=== PATIENT | female | born 2000 | race Hispanic/Latino ===

== ENCOUNTER 2022-01-04 14:24 | Inpatient (IN) | payer OTHER ==
[2022-01-04] MEDS ORDERED: Ondansetron PF 4 MG/2 ML Vial IVP PRN ×2 (15:22→21:56)
[2022-01-04] MEDS ORDERED: Ibuprofen 800 MG TAB PO PRN (15:22)
[2022-01-04] MEDS ORDERED: Methylergonovine 0.2 MG/ML VIAL IM PRN (15:22)
[2022-01-04] MEDS ORDERED: Acetaminophen 500 MG TAB PO PRN (15:22)
[2022-01-04] MEDS ORDERED: Misoprostol 200 MCG TAB PR PRN (15:22)
[2022-01-04] MEDS ORDERED: Docusate 100 MG CAP PO PRN (15:22)
[2022-01-04] MEDS ORDERED: Butorphanol Tartrate 1 MG/ML VIAL SLOW IVP PRN (15:22)
[2022-01-04] MEDS ORDERED: Carboprost 250 MCG/ML AMP IM PRN (15:22)
[2022-01-04] MEDS ORDERED: Promethazine HCl 25 MG/ML VIAL IM PRN ×2 (15:22→21:56)
[2022-01-04] MEDS ORDERED: hydrALAZINE 20 MG/ML VIAL SLOW IVP PRN (15:22)
[2022-01-04] MEDS ORDERED: Lidocaine 1% (PF) 30 ML VIAL SC PRN (15:22)
[2022-01-04] MEDS ORDERED: NS w/ Oxytocin 30 units 500 ML IV SCH (15:30)
[2022-01-04] MEDS ORDERED: Penicillin G Potassium 5 MILL.UNITS in Sodium Chloride 0.9% 100 ML IVPB SCH (15:30)
[2022-01-04 16:31] LABS: Hemoglobin 11.8 g/dL (12.0-15.5); Mean Corpuscular HGB CONC 33.6 g/dL (32.0-36.0); Mean Corpuscular Volume 83.4 fl (81.6-98.3); Mean Platelet Volume 10.9 fl (7.4-10.4); Platelet Count 293 10x3/uL (150-450); RBC Distribution Width 14.6 % (11.5-14.5); Red Blood Cell (RBC) Count 4.21 10x6/uL (3.90-5.03); White Blood Cell (WBC) Count 10.9 10x3/uL (3.5-10.5)
[2022-01-04] MEDS: Lactated Ringer's 1,000 ML IV SCH (17:06)
[2022-01-04 17:19] LABS: Hep B Surf Ag Non-Reactive S/CO (NonReactive); Syphilis Antibody Nonreactive (Nonreactive); Syphilis Antibody Index 0.04 S/CO (<1.00 Non-Reactive)
[2022-01-04 17:20] LABS: HBSAg Index 0.14 S/CO (0-0.99)
[2022-01-04 17:27] VITALS: BMI 33.9
[2022-01-04 18:59] LABS: SARS-CoV-2 NAA Rapid Test Not Detected (NotDetected)
[2022-01-04] MEDS ORDERED: Fentanyl 2 mcg/Bup 0.1% Cadd 100 ML ONE (21:02)
[2022-01-04] MEDS ORDERED: ePHEDrine Sulfate 50 MG/10 ML VIAL SLOW IVP PRN (21:56)
[2022-01-04] MEDS ORDERED: Lactated Ringer's 500 ML IV PRN (21:56)
[2022-01-04] MEDS ORDERED: Naloxone HCl 0.4 mg/ml Vial IVP PRN ×2 (21:56)
[2022-01-04] MEDS ORDERED: Moisturizing Cream (Eucerin) 113 GM JAR TOP PRN (21:56)
[2022-01-04] MEDS ORDERED: Acetaminophen 325 MG TAB PO PRN (21:56)
[2022-01-04] MEDS ORDERED: diphenhydrAMINE 50 MG/ML VIAL IVP PRN (21:56)
[2022-01-04] MEDS ORDERED: Communication Order-Pharmacy FS SCH (22:00)
[2022-01-04] MEDS ORDERED: Fentanyl 2 mcg/Bupivacaine 0.1% Cassette 100 ML EPIDURAL SCH (22:00)
[2022-01-04] MEDS: Penicillin G 2.5 MILL.units 2.5 MILL.UNITS in Premix Bag 1 BAG IVPB SCH (22:23)
[2022-01-04] MEDS: Misoprostol 100 MCG TAB PO SCH (22:23)
[2022-01-05] MEDS: Penicillin G 2.5 MILL.units 2.5 MILL.UNITS in Premix Bag 1 BAG IVPB SCH ×3 (02:20→10:12)
[2022-01-05 03:43] LABS: Creatinine, Urine 219.5 mg/dL (47-110)
[2022-01-05] MEDS ORDERED: NS w/ Oxytocin 30 units 500 ML IV SCH (04:00)
[2022-01-05 06:22] LABS: ALT (SGPT) 8 U/L (8-55); AST (SGOT) 15 U/L (5-34); Albumin 2.4 g/dL (3.5-5.0); Alkaline Phosphatase 168 U/L (40-100); Anion Gap 16 mmol/L (10-20); BUN (Urea Nitrogen) 9 mg/dL (7.0-18.7); Bilirubin, Total 0.4 mg/dL (0.2-1.2); Calc. Creatinine Clearance 171 mL/min (70-130); Calcium 8.5 mg/dL (7.8-10.44); Carbon Dioxide 19 mmol/L (22-29); Chloride 107 mmol/L (98-107); Glucose 62 mg/dL (70-105); Potassium 3.9 mmol/L (3.5-5.1); Protein, Total 5.4 g/dL (6.0-8.3); Sodium 138 mmol/L (136-145)
[2022-01-05] MEDS ORDERED: Furosemide 20 MG/2 ML VIAL SLOW IVP SCH (08:15)
[2022-01-05] MEDS ORDERED: Sodium Chloride 0.9% 1,000 ML IV SCH (08:30)
[2022-01-05] MEDS ORDERED: Fentanyl 100 MCG/2 ML VIAL ONE ×2 (09:02→12:51)
[2022-01-05 09:58] LABS: #Basophils 0.1 10x3/uL (0.0-0.2); #Monocytes 1.3 10x3/uL (0.0-1.1); #Neutrophils 12.5 10x3/uL (1.5-8.4); %Basophils 0.3 % (0.0-2.0); %Eosinophils 0.1 % (0.0-6.0); %Lymphocytes 16.3 % (18.0-47.0); %Monocytes 7.9 % (0.0-10.0); %Neutrophils 74.8 % (40.0-75.0); Hemoglobin 12.2 g/dL (12.0-15.5); Mean Corpuscular HGB CONC 32.9 g/dL (32.0-36.0); Mean Corpuscular Hemoglobin 27.8 pg (27.0-33.0); Mean Corpuscular Volume 84.5 fl (81.6-98.3); Mean Platelet Volume 10.5 fl (7.4-10.4); Platelet Count 308 10x3/uL (150-450); RBC Distribution Width 14.8 % (11.5-14.5); Red Blood Cell (RBC) Count 4.39 10x6/uL (3.90-5.03); White Blood Cell (WBC) Count 16.7 10x3/uL (3.5-10.5)
[2022-01-05 10:23] LABS: ALT (SGPT) 9 U/L (8-55); AST (SGOT) 17 U/L (5-34); Albumin 2.4 g/dL (3.5-5.0); Alkaline Phosphatase 167 U/L (40-100); Anion Gap 15 mmol/L (10-20); BUN (Urea Nitrogen) 9 mg/dL (7.0-18.7); Bilirubin, Total 0.4 mg/dL (0.2-1.2); Calc. Creatinine Clearance 159 mL/min (70-130); Calcium 8.8 mg/dL (7.8-10.44); Carbon Dioxide 20 mmol/L (22-29); Chloride 105 mmol/L (98-107); Globulin 3.3 g/dL (2.4-3.5); Glucose 65 mg/dL (70-105); Potassium 3.7 mmol/L (3.5-5.1); Protein, Total 5.7 g/dL (6.0-8.3); Sodium 136 mmol/L (136-145)
[2022-01-05] MEDS ORDERED: Fentanyl 2 mcg/Bup 0.1% Cadd 100 ML ONE (12:50)
[2022-01-05] MEDS ORDERED: Acetaminophen 500 MG TAB PO SCH (14:00)
[2022-01-05] MEDS ORDERED: Carboprost 250 MCG/ML AMP ONE (14:01)
[2022-01-05] MEDS ORDERED: Misoprostol 200 MCG TAB ONE (14:02)
[2022-01-05] MEDS ORDERED: NS w/ Oxytocin 30 units 500 ML ONE (14:02)
[2022-01-05] MEDS ORDERED: Tranexamic Acid 1,000 MG/10 ML VIAL ONE (14:02)
[2022-01-05] MEDS ORDERED: Gentamicin Sulfate 380 MG in Sodium Chloride 0.9% 100 ML IVPB SCH (14:15)
[2022-01-05] MEDS ORDERED: Magnesium Sulfate 20 gm/500 ml 20 GM/500 ML BAG ONE (14:57)
[2022-01-05] MEDS ORDERED: Calcium Gluc 4.6 MEQ/10 ML (100 MG/ML) SLOW IVP PRN (14:59)
[2022-01-05] MEDS ORDERED: Magnesium Sulfate 20 gm/500 ml 20 GM/500 ML BAG IVPB SCH (15:00)
[2022-01-05] MEDS ORDERED: Magnesium Sulfate 20 GM/WATER 500 ML BAG IVPB SCH (15:00)
[2022-01-05 16:46] LABS: RapidComm Collect By NURSE
[2022-01-05 16:48] LABS: RapidComm Collect By NURSE; pH (Cord, venous) 7.314 (7.250-7.350)
[2022-01-05] MEDS ORDERED: AMPicillin 2 GM in Dextrose 5% in Water 100 ML IVPB SCH (18:00)
[2022-01-05] MEDS ORDERED: hydrALAZINE 20 MG/ML VIAL SLOW IVP PRN (18:41)
[2022-01-05] MEDS ORDERED: HYDROcodone/Acetaminophen 5/325 mg Tablet PO PRN ×2 (18:41)
[2022-01-05] MEDS ORDERED: Ondansetron PF 4 MG/2 ML Vial IVP PRN (18:41)
[2022-01-05] MEDS ORDERED: Milk Of Magnesia 30 ML UDCUP PO PRN (18:41)
[2022-01-05] MEDS ORDERED: Boostrix 0.5 ML (Tdap) VIAL IM ONE (18:41)
[2022-01-05] MEDS ORDERED: Bisacodyl 10 MG SUPP PR PRN (18:41)
[2022-01-05] MEDS ORDERED: Calcium Gluconate 4.6 MEQ in Sodium Chloride 0.9% 100 ML IVPB PRN (18:41)
[2022-01-05 19:29] LABS: Magnesium 4.8 mg/dL (1.7-2.2)
[2022-01-05] MEDS: Ibuprofen 800 MG TAB PO SCH (20:09)
[2022-01-05] MEDS: Docusate 100 MG CAP PO SCH (21:23)
[2022-01-06] MEDS: Magnesium Sulfate 20 gm/500 ml 20 GM/500 ML BAG IVPB SCH ×2 (00:08→11:13)
[2022-01-06] MEDS: Lactated Ringer's 1,000 ML IV SCH ×3 (00:53→15:21)
[2022-01-06] MEDS: Ibuprofen 800 MG TAB PO SCH ×3 (04:07→22:20)
[2022-01-06] MEDS: Ferrous Sulfate 325 MG TAB PO SCH (07:53)
[2022-01-06] MEDS: Misoprostol 100 MCG TAB PO SCH (07:56)
[2022-01-06] MEDS: Penicillin G 2.5 MILL.units 2.5 MILL.UNITS in Premix Bag 1 BAG IVPB SCH (07:57)
[2022-01-06] MEDS: Docusate 100 MG CAP PO SCH ×2 (09:06→22:19)
[2022-01-06] MEDS: Prenatal Vitamin 1 TAB PO SCH (09:06)
[2022-01-06] MEDS ORDERED: Labetalol HCl 100 MG TAB PO SCH (14:45)
[2022-01-06] MEDS ORDERED: hydrALAZINE 20 MG/ML VIAL ONE (14:47)
[2022-01-06] MEDS ORDERED: Calcium Gluc 4.6 MEQ/10 ML (100 MG/ML) SLOW IVP PRN (14:56)
[2022-01-06] MEDS ORDERED: hydrALAZINE 20 MG/ML VIAL SLOW IVP PRN ×2 (14:56)
[2022-01-06] MEDS ORDERED: Lorazepam 2 MG/ML VIAL SLOW IVP PRN (14:56)
[2022-01-06] MEDS: Labetalol HCl 100 MG TAB PO SCH (22:20)
[2022-01-07] MEDS: Ibuprofen 800 MG TAB PO SCH ×3 (06:24→20:44)
[2022-01-07] MEDS: Ferrous Sulfate 325 MG TAB PO SCH ×2 (08:15→15:23)
[2022-01-07] MEDS: Labetalol HCl 100 MG TAB PO SCH ×2 (09:13→20:44)
[2022-01-07] MEDS: Docusate 100 MG CAP PO SCH ×2 (09:13→20:43)
[2022-01-07] MEDS: Prenatal Vitamin 1 TAB PO SCH (09:13)
[2022-01-07] MEDS ORDERED: Benzocaine-Menthol 82.5 ML CAN TOP PRN (21:53)
[2022-01-08] MEDS: Ibuprofen 800 MG TAB PO SCH (04:52)
[2022-01-08] MEDS: Docusate 100 MG CAP PO SCH (09:12)
[2022-01-08] MEDS: Prenatal Vitamin 1 TAB PO SCH (09:12)
[2022-01-08] MEDS: Labetalol HCl 100 MG TAB PO SCH (09:14)
[2022-01-08 09:18] VITALS: BP 134/71
[2022-01-08 09:59] VITALS: TEMP 98.3
== END 2022-01-08 17:36 | disposition home or self-care (01) | DRG 805 ==
LOC: CSHLD/OP 14:24 → CSHLD 15:21 → CSHPP 01-06 17:30
PROVIDERS: ADMIT Obstetrics & Gynecology; ATTEND Obstetrics & Gynecology
PROC: 3E0P7VZ Introduction of Hormone into Female Reproductive, Via Natural or Artificial Opening (ICD-10-PCS; 2022-01-04)
PROC: 10E0XZZ Delivery of Products of Conception, External Approach (ICD-10-PCS; principal; 2022-01-05)
PROC: 0KQM0ZZ Repair Perineum Muscle, Open Approach (ICD-10-PCS; 2022-01-05)
PROC: 0W8NXZZ Division of Female Perineum, External Approach (ICD-10-PCS; 2022-01-05)
PROC: 10H07YZ Insertion of Other Device into Products of Conception, Via Natural or Artificial Opening (ICD-10-PCS; 2022-01-05)
PROC: 3E033VJ Introduction of Other Hormone into Peripheral Vein, Percutaneous Approach (ICD-10-PCS; 2022-01-05)
DX: O42.013 Preterm premature rupture of membranes, onset of labor within 24 hours of rupture, third trimester (principal); O41.1230 Chorioamnionitis, third trimester, not applicable or unspecified; Z37.0 Single live birth; O60.14X0 Preterm labor third trimester with preterm delivery third trimester, not applicable or unspecified; Z20.822 Contact with and (suspected) exposure to COVID-19; O14.14 Severe pre-eclampsia complicating childbirth; Z3A.36 36 weeks gestation of pregnancy; O66.0 Obstructed labor due to shoulder dystocia; O70.1 Second degree perineal laceration during delivery; E66.9 Obesity, unspecified; O99.214 Obesity complicating childbirth; O99.344 Other mental disorders complicating childbirth; F41.1 Generalized anxiety disorder; F32.9 Major depressive disorder, single episode, unspecified; J45.909 Unspecified asthma, uncomplicated; O99.52 Diseases of the respiratory system complicating childbirth; O36.63X0 Maternal care for excessive fetal growth, third trimester, not applicable or unspecified
CPT/HCPCS: 36415; 51702; 51703; 80053; 82570; 82805; 83735; 84156; 85025; 85027; 86780; 86850; 86900; 86901; 87340; 93306; 99285; J0360; J1580; J1940; J2540; J2590; J3475; J3490; J7120; U0002

== ENCOUNTER 2022-01-25 22:05 | Emergency (ER) | payer OTHER ==
[2022-01-25 22:45] LABS: #Basophils 0.1 10x3/uL (0.0-0.2); #Eosinphils 0.1 10x3/uL (0.0-0.5); #Monocytes 0.5 10x3/uL (0.0-1.1); #Neutrophils 4.3 10x3/uL (1.5-8.4); %Basophils 0.8 % (0.0-2.0); %Eosinophils 1.3 % (0.0-6.0); %Lymphocytes 43.8 % (18.0-47.0); %Neutrophils 47.8 % (40.0-75.0); Hemoglobin 12.4 g/dL (12.0-15.5); Mean Corpuscular HGB CONC 32.3 g/dL (32.0-36.0); Mean Corpuscular Hemoglobin 27.4 pg (27.0-33.0); Platelet Count 454 10x3/uL (150-450); Red Blood Cell (RBC) Count 4.52 10x6/uL (3.90-5.03)
[2022-01-25 23:02] LABS: ALT (SGPT) 31 U/L (8-55); AST (SGOT) 20 U/L (5-34); Albumin 3.9 g/dL (3.5-5.0); Alkaline Phosphatase 114 U/L (40-100); Anion Gap 15 mmol/L (10-20); BUN (Urea Nitrogen) 12 mg/dL (7.0-18.7); Bilirubin, Total 0.2 mg/dL (0.2-1.2); Calc. Creatinine Clearance 0 mL/min (70-130); Calcium 9.5 mg/dL (7.8-10.44); Carbon Dioxide 23 mmol/L (22-29); Chloride 104 mmol/L (98-107); Globulin 3.5 g/dL (2.4-3.5); Glucose 95 mg/dL (70-105); Potassium 3.4 mmol/L (3.5-5.1); Protein, Total 7.4 g/dL (6.0-8.3); Sodium 139 mmol/L (136-145)
[2022-01-25 23:27] LABS: Bilirubin Neg (Negative); Blood, Urine 250 (Negative); Clarity Clear (Clear); Glucose, Urine (Dipstick) Normal (Negative); Ketone, Urine Negative (Negative); Leukocyte 100 (Negative); Nitrite Negative (Negative); Protein, Urine (Dipstick) 30 mg/dl (Neg-Trace); Urobilinogen Normal mg/dL (Less than 2)
[2022-01-25 23:35] LABS: Bacteria/HPF 2+ HPF (None Seen); Mucous/LPF 1+ LPF (<2+)
== END 2022-01-26 00:36 | disposition home or self-care (01) ==
LOC: CSHERS 22:05
DX: I10 Essential (primary) hypertension (principal)
CPT/HCPCS: 80053; 81003; 81015; 85025; 87086; 93005

== ENCOUNTER 2023-02-02 18:55 | Emergency (ER) | payer OTHER ==
[2023-02-02] MEDS ORDERED: Ketorolac Tromethamine 30 MG/ML VIAL ONE (21:07)
[2023-02-02] MEDS ORDERED: Dexamethasone 10 MG/ML VIAL ONE (21:07)
== END 2023-02-02 21:26 | disposition home or self-care (01) ==
LOC: CSHERS 18:55
DX: B34.9 Viral infection, unspecified (principal)
CPT/HCPCS: 96372; 99283; J1100; J1885

== ENCOUNTER 2023-12-06 06:32 | Day surgery (SDC) | payer OTHER ==
[2023-12-06 07:08] VITALS: BMI 36.1
[2023-12-06] MEDS ORDERED: hydrALAZINE 20 MG/ML VIAL SLOW IVP PRN (07:43)
[2023-12-06] MEDS: Acetaminophen 500 MG TAB PO SCH (08:03)
[2023-12-06] MEDS: Cyclobenzaprine 10 MG TAB PO SCH (09:39)
== END 2023-12-06 11:50 | disposition home or self-care (01) ==
LOC: CSHLD/OP 06:32
PROVIDERS: ATTEND Student in an Organized Health Care Education/Training Program
DX: O99.891 Other specified diseases and conditions complicating pregnancy (principal); M54.50 Low back pain, unspecified; R10.2 Pelvic and perineal pain; Z3A.25 25 weeks gestation of pregnancy; Z79.899 Other long term (current) drug therapy
CPT/HCPCS: 99283

== ENCOUNTER 2023-12-10 00:47 | Emergency (ER) | payer OTHER ==
[2023-12-10 01:12] LABS: Bilirubin Neg (Negative); Blood, Urine 10 (Negative); Clarity Cloudy (Clear); Glucose, Urine (Dipstick) Normal (Negative); Ketone, Urine 5 mg/dL (Negative); Leukocyte 100 (Negative); Nitrite Negative (Negative); Protein, Urine (Dipstick) 30 mg/dl (Neg-Trace)
[2023-12-10] MEDS ORDERED: Acetaminophen 500 MG TAB ONE (01:14)
[2023-12-10] MEDS ORDERED: Ondansetron PF 4 MG/2 ML Vial ONE (01:14)
[2023-12-10 01:20] LABS: Bacteria/HPF 4+ HPF (None Seen); CAUTI Indications for Culture Pregnancy; RBC/HPF 0-3 HPF (0-3)
[2023-12-10 01:21] LABS: #Monocytes 0.7 10x3/uL (0.0-1.1); #Neutrophils 6.5 10x3/uL (1.5-8.4); %Basophils 0.3 % (0.0-2.0); %Eosinophils 0.4 % (0.0-6.0); %Monocytes 7.7 % (0.0-10.0); %Neutrophils 68.8 % (40.0-75.0); Hematocrit 32.2 % (34.9-44.5); Hemoglobin 10.7 g/dL (12.0-15.5); Mean Corpuscular HGB CONC 33.2 g/dL (32.0-36.0); Mean Corpuscular Hemoglobin 28.9 pg (27.0-33.0); Mean Platelet Volume 8.8 fl (7.4-10.4); Platelet Count 348 10x3/uL (150-450); RBC Distribution Width 14.2 % (11.5-14.5); White Blood Cell (WBC) Count 9.5 10x3/uL (3.5-10.5)
[2023-12-10 01:24] LABS: Urine Culture Reflex Yes Yes
[2023-12-10 01:35] LABS: ALT (SGPT) 46 U/L (8-55); AST (SGOT) 54 U/L (5-34); Albumin 3.6 g/dL (3.5-5.0); Alkaline Phosphatase 68 U/L (40-110); Anion Gap 15 mmol/L (10-20); BUN (Urea Nitrogen) 7 mg/dL (7.0-18.7); Bilirubin, Total 0.3 mg/dL (0.2-1.2); Calc. Creatinine Clearance 0 mL/min (70-130); Calcium 8.3 mg/dL (7.8-10.44); Carbon Dioxide 18 mmol/L (22-29); Chloride 106 mmol/L (98-107); Estimated GFR 133; Globulin 3.2 g/dL (2.4-3.5); Glucose 122 mg/dL (70-105); Potassium 3.8 mmol/L (3.5-5.1); Protein, Total 6.8 g/dL (6.0-8.3); Sodium 135 mmol/L (136-145)
[2023-12-10 01:42] LABS: Troponin I Less than 0.010 ng/mL (< 0.028)
[2023-12-10] MEDS ORDERED: Iopamidol 370 76% 100 ML VIAL ONE (08:46)
== END 2023-12-10 04:07 | disposition home or self-care (01) ==
LOC: CSHERS 00:47
DX: R07.89 Other chest pain (principal); R82.71 Bacteriuria
CPT/HCPCS: 71275; 80053; 81001; 84484; 85025; 85379; 87077; 87086; 87186; 93005; 96374; J2405; Q9967

== ENCOUNTER 2023-12-30 05:04 | Day surgery (SDC) | payer OTHER ==
[2023-12-30 05:34] VITALS: BMI 36.9
[2023-12-30] MEDS ORDERED: hydrALAZINE 20 MG/ML VIAL SLOW IVP PRN (06:03)
[2023-12-30 06:14] LABS: Bilirubin Neg (Negative); Blood, Urine Negative (Negative); Clarity Clear (Clear); Glucose, Urine (Dipstick) Normal (Negative); Ketone, Urine Negative (Negative); Leukocyte 25 (Negative); Nitrite Negative (Negative); Protein, Urine (Dipstick) 15 mg/dl (Neg-Trace)
[2023-12-30 06:20] LABS: Bacteria/HPF None Seen HPF (None Seen); CAUTI Indications for Culture Pregnancy; RBC/HPF None Seen HPF (0-3); Squamous Epithelial 0-3 HPF (0-3); WBC/HPF 0-3 HPF (0-3)
[2023-12-30 06:21] LABS: Urine Culture Reflex Yes Yes
[2023-12-30] MEDS: Ondansetron ODT 4 MG TAB PO PRN (07:21)
[2023-12-30] MEDS ORDERED: Iopamidol 15 ML ONE (07:21)
[2023-12-30] MEDS ORDERED: Indomethacin 50 MG SUPP ONE (07:22)
[2023-12-30 07:45] LABS: #Basophils 0.03 10x3/uL (0.0-0.2); #Monocytes 0.91 10x3/uL (0.0-1.1); #Neutrophils 6.87 10x3/uL (1.5-8.4); %Basophils 0.3 % (0.0-2.0); %Eosinophils 0.9 % (0.0-6.0); %Lymphocytes 26.8 % (18.0-47.0); %Monocytes 8.3 % (0.0-10.0); %Neutrophils 62.7 % (40.0-75.0); Hematocrit 31.7 % (34.9-44.5); Hemoglobin 10.8 g/dL (12.0-15.5); Mean Corpuscular HGB CONC 34.1 g/dL (32.0-36.0); Mean Corpuscular Hemoglobin 28.5 pg (27.0-33.0); Mean Corpuscular Volume 83.6 fl (81.6-98.3); Mean Platelet Volume 8.8 fl (7.4-10.4); Platelet Count 334 10x3/uL (150-450); RBC Distribution Width 13.8 % (11.5-14.5); Red Blood Cell (RBC) Count 3.79 10x6/uL (3.90-5.03)
[2023-12-30 08:10] LABS: ALT (SGPT) 25 U/L (8-55); AST (SGOT) 17 U/L (5-34); Albumin 2.6 g/dL (3.5-5.0); Alkaline Phosphatase 91 U/L (40-110); Anion Gap 14 mmol/L (10-20); BUN (Urea Nitrogen) 8 mg/dL (7.0-18.7); Bilirubin, Total 0.3 mg/dL (0.2-1.2); Calc. Creatinine Clearance 203 mL/min (70-130); Calcium 8.9 mg/dL (7.8-10.44); Carbon Dioxide 19 mmol/L (22-29); Chloride 104 mmol/L (98-107); Estimated GFR 132; Globulin 4.3 g/dL (2.4-3.5); Glucose 125 mg/dL (70-105); Potassium 3.4 mmol/L (3.5-5.1); Protein, Total 6.9 g/dL (6.0-8.3); Sodium 134 mmol/L (136-145)
== END 2023-12-30 08:50 | disposition home or self-care (01) ==
LOC: CSHLD/OP 05:04
PROVIDERS: ATTEND Obstetrics & Gynecology
DX: O36.8130 Decreased fetal movements, third trimester, not applicable or unspecified (principal); O24.419 Gestational diabetes mellitus in pregnancy, unspecified control; Z79.84 Long term (current) use of oral hypoglycemic drugs; Z79.899 Other long term (current) drug therapy; Z3A.29 29 weeks gestation of pregnancy
CPT/HCPCS: 36415; 36416; 76819; 80053; 81001; 85025; 87086; Q0162; Q9967

== ENCOUNTER 2024-03-04 14:52 | Inpatient (IN) | payer OTHER ==
[2024-03-04] MEDS ORDERED: Famotidine/PF 20 mg/2ml Vial SLOW IVP PRN (15:22)
[2024-03-04] MEDS ORDERED: Bicitra 30 ML UDCUP PO PRN (15:22)
[2024-03-04] MEDS ORDERED: Diphenoxylate HCl/Atropine Tablet PO PRN (15:23)
[2024-03-04] MEDS ORDERED: Carboprost 250 MCG/ML AMP IM PRN (15:23)
[2024-03-04] MEDS ORDERED: Promethazine HCl 25 MG/ML VIAL IM PRN (15:23)
[2024-03-04] MEDS ORDERED: Tranexamic Acid 1,000 MG/10 ML VIAL IVP PRN (15:23)
[2024-03-04] MEDS ORDERED: hydrALAZINE 20 MG/ML VIAL SLOW IVP PRN (15:23)
[2024-03-04] MEDS ORDERED: Methylergonovine 0.2 MG/ML VIAL IM PRN (15:23)
[2024-03-04] MEDS ORDERED: Ondansetron PF 4 MG/2 ML Vial IVP PRN ×3 (15:23→16:20)
[2024-03-04] MEDS ORDERED: Misoprostol 200 MCG TAB PR PRN (15:23)
[2024-03-04] MEDS ORDERED: Oxytocin 30 units/NS 500 ML 500 ML IV SCH (15:30)
[2024-03-04] MEDS ORDERED: Azithromycin 500 MG in Sodium Chloride 0.9% 250 ML 250 ML IVPB SCH (15:45)
[2024-03-04] MEDS ORDERED: CEFAZOLIN 2 GM in Sodium Chloride 0.9% 100 ML IVPB SCH (15:45)
[2024-03-04] MEDS ORDERED: Moisturizing Cream (Eucerin) 113 GM JAR TOP PRN (16:20)
[2024-03-04] MEDS ORDERED: Meperidine HCl/PF 25 MG (1 mL) VIAL SLOW IVP PRN (16:20)
[2024-03-04] MEDS ORDERED: Naloxone HCl 0.4 mg/ml Vial IV PRN (16:20)
[2024-03-04] MEDS ORDERED: Naloxone HCl 0.4 mg/ml Vial IVP PRN ×2 (16:20)
[2024-03-04] MEDS ORDERED: fentaNYL 50 mcg/mL 1 mL Vial SLOW IVP PRN (16:20)
[2024-03-04] MEDS ORDERED: diphenhydrAMINE 50 MG/ML VIAL IVP PRN (16:20)
[2024-03-04] MEDS ORDERED: Communication Order-Pharmacy FS SCH (16:30)
[2024-03-04 16:31] LABS: Hematocrit 35.7 % (34.9-44.5); Mean Corpuscular HGB CONC 33.6 g/dL (32.0-36.0); Mean Corpuscular Hemoglobin 28.2 pg (27.0-33.0); Mean Platelet Volume 10.1 fL (7.4-10.4); Platelet Count 322 10x3/uL (150-450); RBC Distribution Width 18.1 % (11.5-14.5); Red Blood Cell (RBC) Count 4.25 10x6/uL (3.90-5.03)
[2024-03-04] MEDS ORDERED: Bisacodyl 10 MG SUPP PR PRN (16:49)
[2024-03-04 16:57] LABS: HBsAg Index 0.17 S/CO (0-0.99); Hep B Surf Ag - L&D Non-Reactive S/CO (NonReactive)
[2024-03-04 16:58] LABS: Syphilis Antibody Nonreactive (Nonreactive); Syphilis Antibody Index 0.06 S/CO (<1.00 Non-Reactive)
[2024-03-04] MEDS: Phenylephrine 40 MG/NS 250 ML 250 ML ONE (21:10)
[2024-03-04] MEDS: Sodium Bicarbonate 2.5 MEQ/5 ML SDV ONE (21:10)
[2024-03-04] MEDS: Ferrous Sulfate 325 MG TAB PO SCH (21:10)
[2024-03-04] MEDS: Sodium Chloride 0.9% 10 ML ONE (21:10)
[2024-03-04] MEDS: Ondansetron PF 4 MG/2 ML Vial ONE (21:10)
[2024-03-04] MEDS: Oxytocin 10 UNITS/ML VIAL ONE (21:10)
[2024-03-04] MEDS: Docusate 100 MG CAP PO SCH (21:10)
[2024-03-04] MEDS: Dexamethasone 4 mg/ml Vial ONE (21:10)
[2024-03-04] MEDS: Ketorolac Tromethamine 30 MG (1 mL) VIAL ONE (21:10)
[2024-03-04] MEDS: Morphine PF 10 MG/10 ML VIAL ONE (21:10)
[2024-03-04] MEDS: Dexmedetomidine 200 MCG/2 ML VIAL ONE (21:10)
[2024-03-04] MEDS: Promethazine HCl 25 MG/ML VIAL IM PRN (23:04)
[2024-03-04] MEDS: Ketorolac Tromethamine 30 MG (1 mL) VIAL IVP SCH (23:45)
[2024-03-05] MEDS ORDERED: HumaLOG 300 UNITS/3 ML VIAL SC PRN (00:13)
[2024-03-05] MEDS ORDERED: Dextrose 5% in Water 1,000 ML IV PRN (00:13)
[2024-03-05] MEDS ORDERED: Dextrose 50% Abboject 50 ML SYRINGE SLOW IVP PRN (00:13)
[2024-03-05] MEDS ORDERED: Glucagon 1 MG/ML KIT IM PRN (00:13)
[2024-03-05 03:52] VITALS: BMI 39.4
[2024-03-05 04:24] LABS: Hematocrit 32.2 % (34.9-44.5); Hemoglobin 10.5 g/dL (12.0-15.5); Mean Corpuscular HGB CONC 32.6 g/dL (32.0-36.0); Mean Corpuscular Hemoglobin 27.8 pg (27.0-33.0); Mean Corpuscular Volume 85.2 fL (81.6-98.3); Mean Platelet Volume 9.4 fL (7.4-10.4); Platelet Count 300 10x3/uL (150-450); RBC Distribution Width 17.6 % (11.5-14.5); Red Blood Cell (RBC) Count 3.78 10x6/uL (3.90-5.03); White Blood Cell (WBC) Count 13.2 10x3/uL (3.5-10.5)
[2024-03-05] MEDS: HYDROcodone/Acetaminophen 5/325 mg Tablet PO PRN (08:25)
[2024-03-05] MEDS: Prenatal Vitamin 1 TAB PO SCH (08:25)
[2024-03-06] MEDS: Ibuprofen 800 MG TAB PO PRN (08:35)
[2024-03-06] MEDS: Simethicone Chewable 80 MG TAB PO PRN (08:35)
[2024-03-06] MEDS: Polyethylene Glycol 3350 17 GM Packet PO SCH (08:42)
[2024-03-06] MEDS: Boostrix 0.5 ML (Tdap) VIAL (>/=7 yrs of age) IM ONE (08:48)
[2024-03-06] MEDS: HumaLOG 300 UNITS/3 ML VIAL SC PRN (11:55)
[2024-03-07] MEDS ORDERED: HYDROcodone/Acetaminophen 5/325 mg Tablet PO PRN ×2 (04:02→05:24)
[2024-03-07 08:03] VITALS: BP 118/61; TEMP 97.8
== END 2024-03-07 12:28 | disposition home or self-care (01) | DRG 788 ==
LOC: CSHLD/OP 14:52 → CSHLD 15:39 → CSHPP 21:00
PROVIDERS: ADMIT Family Medicine; ATTEND Family Medicine
PROC: 10D00Z1 Extraction of Products of Conception, Low, Open Approach (ICD-10-PCS; principal; 2024-03-05)
DX: O42.02 Full-term premature rupture of membranes, onset of labor within 24 hours of rupture (principal); O24.424 Gestational diabetes mellitus in childbirth, insulin controlled; Z3A.38 38 weeks gestation of pregnancy; Z37.0 Single live birth; O99.214 Obesity complicating childbirth; O40.3XX0 Polyhydramnios, third trimester, not applicable or unspecified
CPT/HCPCS: 36416; 51702; 85027; 86780; 86850; 86900; 86901; 87340; 99285; C1889; J1100; J1815; J1885; J2274; J2405; J2550; J2590